=== PATIENT | female | born 1940 | race Caucasian/White ===

== ENCOUNTER 2017-03-12 08:37 | Day surgery (SDC) | payer OTHER ==
[2017-03-12] VITALS (14 sets, daily range): BP systolic 110–174; BP diastolic 54–91; PULSE 65–70; TEMP 36.6–37; O2SAT 95–100; Ht 165.1 cm; Wt 84.5 kg
[~2017-03-12] VITALS: Ht 165.1 cm; Wt 84.5 kg
[~2017-03-12 08:37] MED LIST: ADVIN50050 INH; FLUO20CA35 PO; LEVO88TA3 PO; PRLSR20 PO; SIMV40TA2 PO
--- NOTE | 2017-03-12 08:50 | History and Physical ---
History & Physical Date of Service Mar 12, 2017. History & Physical Reason for visit: Bronchoscopy HPI: Patient is a 76-year-old female presenting to [facility] for bronchoscopic evaluation today. Patient has history of COPD, interstitial lung disease, hypoxia, and solitary pulmonary nodule. The patient recently was noted to have worsening of her breathing by KELSEY Altman. She had a 6 minutes walk test completed in the office which showed desaturation down to 87% after 5 minutes of ambulation. She was placed on 2 liters of oxygen and did improve. CT scan was completed on 02/11/2017 which showed no concerning lung nodules needing follow-up. She was noted to have a background of peripheral, pleural based, interstitial lung disease without evidence of airspace infiltrates. These images were not available for viewing. During her most recent outpatient evaluation, the patient was set up for home oxygen with ambulation and at night. It was recommended that she have bronchoscopic evaluation to evaluate the architecture of her airways and to see if she has any mucus plugging that could be causing her hypoxia. Patient pulmonary function studies completed on 01/25/2017. Her PFTs showed spirometry within normal limits, no significance response to bronchodilator, mildly reduced FRC of 56%. Diffusion was significantly reduced at 33% but corrects based off alveolar volume to 86%. This all suggested interstitial lung disease versus pneumonitis. Allergies: Aleve, aspirin, Bactrim, codeine derivatives, Lopid, Niaspan, sulfa drugs Medications: ProAir HFA 1 2 puffs q.4 hours p.r.n., Synthroid 88 micrograms daily, ipratropium bromide nasal solution, atorvastatin calcium 20 mg daily, buspirone 5 mg b.i.d., Prilosec 20 mg daily, Prozac 20 mg daily, Tylenol Arthritis q.4 hours p.r.n. Past medical history: Asthma, COPD, concussion, dyslipidemia, dyspnea, hypothyroidism, rhinorrhea, seasonal allergies, solid pulmonary nodule Surgical history: Cataract surgery, colonoscopy, heart surgery, hysterectomy, jaw surgery, neck surgery Family history: Cardiac disease, CHF, diabetes, hypercholesterolemia Social history: Social drinker, denies history of drug use, never smoker, Physical exam: General: Patient is awake, alert, cooperative, and in no acute distress. Head: Normocephalic, Atraumatic. ENT: PERRLA, No discharge, EOMI, Sclera normal Neck: Normal ROM. Trachea midline. No stridor Respiratory: No respiratory distress. No accessory muscle use. Cardiovascular: Regular rate and rhythm. Extremities: Mild edema B/L LE. No cyanosis. Normal ROM Neuro: Alert, Oriented x 3. CN II-XII grossly intact. Sensation and motor function grossly intact. Psych: Mood and affect are normal. Assessment and plan: Patient with hypoxia, COPD, and interstitial lung disease with worsening symptoms. Plan for bronchoscopic evaluation today for concerns of mucus plugging, infection, etc. Patient's history and physical exam and exam performed by myself above for plan agreed upon.
--- NOTE | 2017-03-12 09:19 | Procedure Note ---
Pre-Mod Sedation Assessment General Date of Moderate Sedation: Mar 12, 2017. Review Cardiovascular: regular rate, rhythm, no edema, no gallop, no JVD, no murmur Abdomen: normal bowel sounds, non tender, soft, no organomegaly, no pulsatile mass Lungs: chest non-tender, lungs clear, normal breath sounds, no respiratory distress Pre-Sedation Airway Assessment Oral Cavity: WNL Able to Visualize Vocal Cords: Yes Short Thick Neck: Yes Hx of Sleep Apnea: No Smoking Status: Never Smoker Mallampati Classification: Class II ASA Classification: Class II Procedure Planning Contraindications-for Mod Sed: None Yes Notes The planned sedation has been discussed with the patient and consent obtained. I have identified the patient, determined the appropriateness of sedation and have assessed the patient immediately prior to the procedure. All medicine(s) and interventions are by my order.
--- NOTE | 2017-03-12 09:19 | History & Physical Bridge Note ---
H&P Re-Evaluation Bridge Note: I have examined the patient, reviewed the History & Physical and in the interval since the performance of the History & Physical I have noted the following changes of clinical significance: No changes noted
[2017-03-12] MEDS ORDERED: DEXTROSE 5% 1000ML 1,000 ML IV SCH (09:30)
[2017-03-12] MEDS ORDERED: PRED10TA PO (09:34)
[2017-03-12] MEDS ORDERED: NURSING VERBAL MED ORDER ONE (11:00)
--- NOTE | 2017-03-12 11:06 | Discharge Instructions ---
Discharge Instructions Date of Service Mar 12, 2017. Admission Reason for Admission: Sob, Pulmonary Nodule Discharge Discharge Diagnosis / Problem: chronic cough with dyspnea on exertion Discharge Goals Goal(s): Diagnostic testing Activity Recommendations Activity Limitations: resume your previous activity . Instructions / Follow-Up Instructions / Follow-Up Follow-up with provider Venkata Street of the [facility] pulmonary division Current Hospital Diet Patient's current hospital diet: Discharge Diet Recommended Diet: Regular Diet Procedures Procedures Performed: Bronchoscopy, bronchial lavage of the lingula and conscious sedation Pending Studies Studies pending at discharge: no Medical Emergencies . Who to Call and When: Medical Emergencies: If at any time you feel your situation is an emergency, please call 911 immediately. . Non-Emergent Contact Non-Emergency issues call your: Mechanical Meter Tester . . "Provider Documentation" section prepared by Loki Crawford. . VTE Core Measure Inpt VTE Proph given/why not?: Treatment not indicated
--- NOTE | 2017-03-12 11:06 | Procedure Note ---
Procedure Note Date of Service Mar 12, 2017. Procedure Note Procedure: Bronchoscopy, conscious sedation, BAL Consent: Obtained by Dr. Crawford through the patient placed into the chart Pre-procedural diagnosis: Hypoxia, ILD, COPD Post-procedural diagnosis: Hypoxia, ILD, COPD Start time: 10:35 End time: 10:53 Total time: 18 minutes Analgesia: 2% liquid lidocaine: Via nebulizer 4% gel lidocaine: Via right naris 2% liquid lidocaine: Via bronchoscopy Sedation given by Dr. Crawford: Versed IV: 2 mg Fentanyl IV: 50 g Procedure: The [employer] video bronchoscope was used for this procedure and passed down through the right naris Right naris/posterior naris/posterior oropharynx: Anatomically within normal limits Glottis: Anatomically within normal limits Vocal cords: Proper abduction and abduction, anatomically within normal limits Subglottis/trachea/Erin: Some benign appearing calcifications noted on the tracheal rings. EDAC noted approx 70% at main erin. Otherwise anatomically within normal limits Right bronchial tree: Right mainstem bronchus: Anatomically within normal limits Right upper lobe: Anatomically within normal limits Bronchus intermedius: EDAC of approx. 80%. Otherwise anatomically within normal limits Right middle lobe: Anatomically within normal limits Right lower lobe: Anatomically within normal limits Findings: No significant findings noted Left bronchial tree: Left mainstem bronchus: Anatomically within normal limits Left upper lobe: Anatomically within normal limits Lingula: Mild erythema noted. Anatomically within normal limits Left lower lobe: Anatomically within normal limits Findings: No significant findings noted Lower lobes noted to have EDAC approximately 70%. Bronchial alveolar lavage: Lingula EBL: 0 Complications: None Follow-up: With Venkata Street PA-C from the [facility] Performed with Dr. Crawford.
[2017-03-12] MEDS ORDERED: MIDAZOLAM HCL 5 MG/ML 1 ML VIAL IV ONE (11:30)
[2017-03-12] MEDS ORDERED: FENTANYL CITRATE INJ 50 MCG/1 ML 2 ML VIAL IV ONE (11:30)
== END 2017-03-12 13:20 | disposition home or self-care (01) ==
LOC: C.ACU 08:37
PROVIDERS: ATTEND Internal Medicine Critical Care Medicine
DX: J84.9 Interstitial pulmonary disease, unspecified (principal); J44.9 Chronic obstructive pulmonary disease, unspecified; E78.5 Hyperlipidemia, unspecified; E03.9 Hypothyroidism, unspecified; Z79.82 Long term (current) use of aspirin; Z79.899 Other long term (current) drug therapy

== ENCOUNTER 2017-04-01 10:30 | Inpatient (IN) | payer OTHER ==
[2017-03-29 15:39] VITALS: BMI 31.0
[~2017-04-01] VITALS: Ht 162.6 cm; Wt 83.6 kg
[2017-04-01] VITALS (11 sets, daily range): BP systolic 112–134; BP diastolic 67–78; PULSE 72–89; TEMP 36.3–36.9; O2SAT 86–98; Ht 162.6 cm; Wt 83.6 kg
[~2017-04-01 10:30] MED LIST changes: -ADVIN50050 INH; +ATOR-22 PO; +GLC/500 PO; +IBUP-1050 PO; +LACTATED RINGER'S 1000ML 1,000 ML IV SCH; +PRED10TA PO; -SIMV40TA2 PO
[2017-04-01] MEDS ORDERED: OXGN (11:08)
[2017-04-01] MEDS ORDERED: CISATRACURIUM BESYLATE IV SOLN 2 MG/ML 10 ML VIAL ONE ×2 (11:45→14:11)
[2017-04-01] MEDS ORDERED: LIDOCAINE HCL 2% 2 ML VIAL (20MG/ML) ONE ×2 (11:45→14:11)
[2017-04-01] MEDS ORDERED: PROPOFOL IV EMULSION 10 MG/ML 20 ML VIAL IV ONE (11:45)
[2017-04-01] MEDS ORDERED: FENTANYL CITRATE INJ 50 MCG/1 ML 2 ML VIAL ONE ×2 (11:46→13:53)
[2017-04-01] MEDS ORDERED: BUPIVACAINE LIPOSOME 1/3% 266 MG/20 ML VIAL INFIL ONE (12:02)
[2017-04-01] MEDS ORDERED: SODIUM CHLORIDE 0.9% PF 50 ML VIAL ONE (12:02)
[2017-04-01 12:33] LABS: ISTAT ARTERIAL BLOOD GAS HCO3 26 meq/L (19-24); ISTAT ARTERIAL BLOOD GAS PCO2 37 mmHg (35-46); ISTAT ARTERIAL BLOOD GAS PO2 85 mmHg (80-95); ISTAT ARTERIAL BLOOD GAS pH 7.46 (7.35-7.45); ISTAT CARBON DIOXIDE 27 mEq/l (24-31)
[2017-04-01] MEDS ORDERED: ONDANSETRON INJ 2 MG/ML 2 ML VIAL IV PRN ×2 (13:45→14:45)
[2017-04-01] MEDS ORDERED: HYDROCORTISONE SOD SUCCINATE 100 MG/2 ML VIAL ONE (13:51)
[2017-04-01] MEDS ORDERED: ONDANSETRON INJ 2 MG/ML 2 ML VIAL ONE (14:10)
[2017-04-01] MEDS ORDERED: SUCCINYLCHOLINE 100MG/5ML SYR IV ONE (14:11)
--- NOTE | 2017-04-01 14:37 | DIAGNOSTIC IMAGING REPORT ---
CHEST ONE VIEW PORTABLE CLINICAL HISTORY: Lung biopsy. COMPARISON STUDY: Chest CT February 11, 2017. FINDINGS: A right apical chest tube is in place. A trace right apical pneumothorax with superior pleural separation of 4 mm is noted. Diffuse interstitial thickening is noted. This indicates interstitial lung disease. Moderate cardiomegaly is noted. There is no evidence for pulmonary edema. There is minimal right lower lung opacity. Spinal fusion is incidentally noted. IMPRESSION: 1. Trace right apical pneumothorax with right chest tube in place. 2. Minimal right lower lung opacity. 3. Interstitial thickening consistent with interstitial lung disease. Electronically signed by: Lexa Gallardo M.D. 04/01/2017 2:36 PM Dictated Date/Time: 04/01/2017 2:34 PM
[2017-04-01] MEDS ORDERED: ATROPINE SULFATE 0.1 MG/ML 5ML SYR IV PRN (14:45)
[2017-04-01] MEDS ORDERED: FLUMAZENIL 0.1 MG/1 ML 10 ML VIAL IV PRN (14:45)
[2017-04-01] MEDS ORDERED: NALOXONE HCL 0.4 MG/1 ML VIAL/CARP IV PRN (14:45)
[2017-04-01] MEDS ORDERED: PROMETHAZINE HCL INJ 12.5 MG in SODIUM CHLORIDE 0.9% 50ML 50 ML IV PRN (14:45)
[2017-04-01] MEDS ORDERED: LABETALOL HCL IV 5 MG/ML 20ML IV PRN (14:45)
[2017-04-01] MEDS ORDERED: EpHEDrine SULFATE INJ 50 MG/ML AMP IV PRN (14:45)
[2017-04-01] MEDS ORDERED: FENTANYL CITRATE INJ 50 MCG/1 ML 2 ML VIAL IV PRN (14:45)
[2017-04-01] MEDS ORDERED: EpHEDrine SULFATE 50MG/5ML SYR ONE (15:53)
[2017-04-01] MEDS ORDERED: PHENYLEPHRINE 100MCG/ML 5ML SYR ONE (15:53)
--- NOTE | 2017-04-01 16:00 | OPERATIVE REPORT ---
DATE OF OPERATION: 04/01/2017 PREOPERATIVE DIAGNOSIS: Probable pulmonary fibrosis POSTOPERATIVE DIAGNOSIS: Same. PROCEDURES: Right thoracoscopy with wedge resection, right lower lobe and right middle lobe. SURGEON: Dr. Ferguson. APPLICATION DEVELOPMENT DIRECTOR: Ariel Helms (Mr. Helms was present for the entire case and was instrumental holding the camera and first assisting). ANESTHESIA: General anesthesia with endotracheal intubation. INDICATION FOR PROCEDURE AND FINDINGS: Celia Kirby is a 77-year-old female with increasing shortness of breath. She has a relative hypoxia. I was asked to see her by Mr. Venkata Street from a pulmonary standpoint for a biopsy. Her symptoms have worsened in the last few months. On 04/01/2017, the patient underwent an uncomplicated thoracoscopic biopsy: I made one 12 mm port and two 5 mm ports and wedged a portion of her right middle lobe as well as her right lower lobe. I did a lateral and medial aspect of the lower lobe. I sent pieces of each of these for culture. We did an Exparel intrathoracic intercostal block. She tolerated it well. DESCRIPTION OF PROCEDURE: The patient brought to the operating and laid in supine position. General anesthesia induced and endotracheal intubation was performed with a single lumen tube. The patient was then placed in left lateral decubitus position, right chest prepped, draped in usual sterile fashion. The tip of scapula, a 5 mm incision was made with a 5 mm port and carbon dioxide insufflated. The lung was obviously abnormal upon inspection with a 5 mm camera. Another 5 mm port was placed at about the fourth interspace anteriorly and then a 12 mm incision was made inferiorly at about the seventh interspace just lateral to the mediastinum. We were able to see there was obviously an abnormality noted on CT scan, but no grossly to inspect it. The tip of the inferior aspect of the lower lobe was grasped with a forcep and the Endo-CARYN stapler was used to fire across this, approximately 3 times. An Endobag was used to remove this and a portion was cut from this and sent to microbiology for Gram stain, AFB and fungal smears and cultures. I then removed a portion of the lateral right lower lobe in the same fashion and then grasped a portion of the medial lower lobe. We also performed an intrathoracic intercostal nerve block by mixing 266 mg of Exparel with 40 mL of normal saline for a total of 60 mL of solution. We then used this to perform an intrathoracic block under thoracoscopic guidance from the 2nd to 11th rib. This was injected above the rib. We got into no bleeding. A 24-Danish chest tube was then placed in the inferior anterior incision and directed towards the apex and sutured in place with heavy silk suture. A 4-0 Monocryl was then used to close the port sites of the two 5 mm ports. She tolerated it quite well and was extubated in the room with negligible blood loss. I attest to the content of the Intraoperative Record and any orders documented therein. Any exception s are noted below.
[2017-04-01] MEDS ORDERED: GLUCAGON FOR INJ 1 MG VIAL SQ PRN (17:00)
[2017-04-01] MEDS ORDERED: GLUCOSE 10 TABS/TUBE PO PRN (17:00)
[2017-04-01] MEDS ORDERED: SODIUM CHLORIDE 0.9% 1000ML 1,000 ML IV SCH (17:00)
[2017-04-01] MEDS ORDERED: DEXTROSE 50% 50 ML SYR IV PRN (17:00)
[2017-04-01] MEDS ORDERED: GLUCOSE 40% GEL 15 GM TUBE PO PRN (17:00)
[2017-04-01] MEDS: METOCLOPRAMIDE HCL INJ 5 MG/ML 2 ML VIAL IV. SCH (18:17)
[2017-04-01] MEDS: ACETAMINOPHEN IV 1,000 MG in EMPTY BAG 0 ML IV SCH (18:20)
[2017-04-01] MEDS: KETOROLAC TROMETHAMINE 15 MG/ML VIAL IV. SCH (18:20)
[2017-04-01] MEDS ORDERED: NURSING VERBAL MED ORDER ONE (19:30)
[2017-04-01] MEDS: INSULIN ASPART 100 UNITS/ML 3 ML PEN SC SCH ×2 (19:49→21:06)
[2017-04-01] MEDS ORDERED: ATORVASTATIN 20 MG TAB PO SCH (21:00)
[2017-04-01] MEDS: DOCUSATE SODIUM 100 MG CAP PO SCH (21:01)
[2017-04-01] MEDS: CEFAZOLIN IV 2,000 MG in SYRINGE 0 ML IV SCH (21:08)
[2017-04-02 00:35] VITALS: BP 106/66; PULSE 79; TEMP 36.8; O2SAT 96
[2017-04-02] MEDS: KETOROLAC TROMETHAMINE 15 MG/ML VIAL IV. SCH ×2 (01:47→10:20)
[2017-04-02] MEDS: ACETAMINOPHEN IV 1,000 MG in EMPTY BAG 0 ML IV SCH ×2 (01:47→10:21)
[2017-04-02] MEDS: METOCLOPRAMIDE HCL INJ 5 MG/ML 2 ML VIAL IV. SCH ×2 (01:47→08:49)
[2017-04-02 02:35] VITALS: BP 108/67; PULSE 79; TEMP 36.3; O2SAT 93
[2017-04-02 04:35] VITALS: BP 132/66; PULSE 78; TEMP 36.3; O2SAT 94
[2017-04-02] MEDS: CEFAZOLIN IV 2,000 MG in SYRINGE 0 ML IV SCH (05:43)
[2017-04-02] MEDS ORDERED: COUGH DROP (SUGAR FREE) LOZ 24 LOZ/1 BOX ONE (05:52)
[2017-04-02 06:00] LABS: PARTIAL THROMBOPLASTIN RATIO 0.9; PROTHROMBIN TIME (PATIENT) 10.6 SECONDS (9.0-12.0)
[2017-04-02] MEDS ORDERED: NURSING VERBAL MED ORDER ONE (06:00)
[2017-04-02] MEDS ORDERED: LEVOTHYROXINE 88 MCG TAB PO SCH (06:00)
[2017-04-02] MEDS ORDERED: COUGH DROP (SUGAR FREE) LOZ 24 LOZ/1 BOX PO PRN (06:15)
--- NOTE | 2017-04-02 06:30 | Clinical Documentation Query ---
This question should be directed to his [email or web address] interface developer. The purpose for this procedure is to obtain a diagnosis. I am not "managing" anything. Dr Ferguson CLINICAL DOCUMENTATION QUERY 77-y/o female who has undergone VATS with resection of RLL and RML. In your clinical opinion is this patient being managed for: (X ) Chronic respiratory failure in setting of pulmonary fibrosis treated with O2 and Prednisone. ( ) Not Agree ( ) Other explanation of clinical findings (Please Explain) ( ) Unable to determine (Please Define) ( ) Need to Discuss The medical record reflects the following clinical findings, treatment, and risk factors. Clinical Indicators: 86% on RA. On home O2 and prednisone. Treatment: O2, Prednisone, Risk Factors: pulmonary fibrosis, Home O2 and prednisone therapy. Please clarify and document your clinical opinion in the progress notes and discharge summary. Terms such as "probable", "suspected", "likely", "questionable", "possible", or "still to be ruled out" are acceptable. IF IN AGREEMENT, YOU MUST DOCUMENT ABOVE DIAGNOSTIC STATEMENT IN DAILY PROGRESS NOTES AND DISCHARGE SUMMARY. This document is not part of the patient's record. Thank You, Brad Min, RN [phone]
[2017-04-02 06:58] VITALS: O2SAT 90
[2017-04-02 07:07] VITALS: BP 117/69; PULSE 73; TEMP 36.7; O2SAT 94
--- NOTE | 2017-04-02 07:24 | DIAGNOSTIC IMAGING REPORT ---
CHEST ONE VIEW PORTABLE CLINICAL HISTORY: 77 years-old Female presenting with lung biopsy . TECHNIQUE: Portable upright AP view of the chest was obtained. COMPARISON: 04/01/2017. FINDINGS: Large bore right pleural drain terminates at the right apex, unchanged. Atherosclerosis of the aortic arch. Cardiac silhouette mildly prominent secondary to mildly low lung volumes with hypoventilatory changes. Reticular opacities with a basilar predominance, left greater than right, unchanged. Bandlike opacities at the right mid and right base, unchanged. No new focal infiltrate. The previously noted right apical pneumothorax is now trace with a pleural separation of approximately 2 mm. No large effusion. Degenerative changes of the thoracic spine. Partially visualized cervical fusion hardware. Upper abdomen normal. IMPRESSION: 1. Trace persistent right apical pneumothorax. Appropriate positioning of the large bore right pleural drain. 2. No new focal infiltrate. Persistent atelectasis and/or scarring. 3. Mildly low lung volumes with reticular basilar opacities likely fibrotic change. This is better characterized on most recent CT from 02/11/2017. Electronically signed by: Vikram Nielsen M.D. 04/02/2017 7:22 AM Dictated Date/Time: 04/02/2017 7:18 AM
--- NOTE | 2017-04-02 07:51 | Anesthesiology Progress Note ---
Anesthesia Post Op Note Date & Time Apr 02, 2017 at 07:51 Vital Signs Pain Intensity: 0.0 Vital Signs Past 12 Hours Date Time Temp Pulse Resp B/P (MAP) Pulse Ox O2 Delivery O2 Flow Rate FiO2 04/02/17 07:07 36.7 73 17 117/69 (85) 94 Nasal Cannula 2.0 04/02/17 06:58 90 Room Air 04/02/17 04:35 36.3 78 18 132/66 (88) 94 Nasal Cannula 1.0 04/02/17 02:35 36.3 79 18 108/67 (81) 93 Nasal Cannula 1.0 04/02/17 00:35 36.8 79 18 106/66 (79) 96 Nasal Cannula 1.0 04/01/17 23:30 Nasal Cannula 1.0 04/01/17 22:40 36.6 77 18 122/67 (85) 92 Nasal Cannula 1.0 04/01/17 20:39 36.9 83 18 123/70 (87) 86 Room Air 04/01/17 20:28 92 Room Air 04/01/17 19:53 36.3 88 18 134/78 (96) 92 Room Air Notes Mental Status: alert / awake / arousable, participated in evaluation Pt Amnestic to Procedure: Yes Nausea / Vomiting: adequately controlled Pain: adequately controlled Airway Patency, RR, SpO2: stable & adequate BP & HR: stable & adequate Hydration State: stable & adequate Anesthetic Complications: no major complications apparent
[2017-04-02] MEDS ORDERED: CLC100 PO (08:32)
[2017-04-02] MEDS ORDERED: TRAM-10 PO (08:32)
[2017-04-02 08:34] LABS: HEMATOCRIT 33.8 % (37-47); MEAN CELL VOLUME 81.6 fL (80-100); MEAN CORPUSCULAR HEMOGLOBIN 27.1 pg (25-34); MEAN CORPUSCULAR HGB CONC 33.1 g/dl (32-36); MEAN PLATELET VOLUME 9.6 fL (7.4-10.4); PLATELET COUNT 241 K/uL (130-400); RED BLOOD COUNT 4.14 M/uL (4.2-5.4); WHITE BLOOD COUNT 10.94 K/uL (4.8-10.8)
--- NOTE | 2017-04-02 08:35 | Discharge Instructions ---
Discharge Instructions Date of Service Apr 02, 2017. Admission Reason for Admission: Interstitial Lung Disease, Diabetic Discharge Discharge Diagnosis / Problem: Interstitial Lung Disease Discharge Goals Goal(s): Learn about illness Activity Recommendations Activity Limitations: as noted below Lifting Limitations: none 1. Do not drive if taking ultram. 2. Do no drive until cleared to do so by Dr. Ferguson. . Instructions / Follow-Up Instructions / Follow-Up 1. Office appointment with Dr. Ferguson in 1 week. Office will call with date and time of appointment. Go to hospital 1 hour before appointment to have a chest x-ray. 2. You may remove dressing in 3 days and shower thereafter. No tub baths. Current Hospital Diet Patient's current hospital diet: Diabetes Type 2 Diet Discharge Diet Recommended Diet: Diabetes Type 2 Diet Procedures Procedures Performed: Right Video Assisted Thoracoscopy with Lung Biopsy right lower lobe x2, right upper lobe Pending Studies Studies pending at discharge: no Medical Emergencies . Who to Call and When: Medical Emergencies: If at any time you feel your situation is an emergency, please call 911 immediately. . Non-Emergent Contact Non-Emergency issues call your: Surgeon Call Non-Emergent contact if: you have a fever, your pain is not controlled, wound has increased drainage . "Provider Documentation" section prepared by Ariel Helms. . VTE Core Measure Inpt VTE Proph given/why not?: Enoxaparin (Lovenox)SQ
[2017-04-02 08:41] LABS: CREATININE 0.89 mg/dl (0.60-1.20)
--- NOTE | 2017-04-02 08:41 | DISCHARGE SUMMARY ---
DISCHARGE DIAGNOSES: 1. Probable interstitial fibrosis. 2. Hypoxemia. HOSPITAL COURSE: Celia Kirby is a delightful 77-year-old female who has increasing dyspnea and increasing cough and was found to have radiographic and clinical changes suggestive of pulmonary fibrosis. She was worked up by Venkata Street and it was felt that a lung biopsy would be in order to make a diagnosis to optimize her therapy. On 04/01/2017, the patient underwent an uncomplicated right thoracoscopy with biopsy of her right lower lobe x2 in the medial and lateral aspects and the upper lobe. She tolerated it quite well. She had no air leak and really no bleeding. We did an Exparel block and she awakened without pain. She is ambulating in the hallway. She is tolerating a house diet. I removed her chest tube. I thought her x-ray looked quite good. She was discharged home on postoperative day 1. We will see her back in the office next week. Discharge instructions were given.
[2017-04-02] MEDS: INSULIN ASPART 100 UNITS/ML 3 ML PEN SC SCH (08:48)
[2017-04-02] MEDS: DOCUSATE SODIUM 100 MG CAP PO SCH (08:50)
[2017-04-02] MEDS ORDERED: FLUOXETINE HCL 20 MG CAP PO SCH (09:00)
[2017-04-02] MEDS ORDERED: PANTOprazole SOD 40 MG TAB PO SCH (09:00)
--- NOTE | 2017-04-02 09:17 | DIAGNOSTIC IMAGING REPORT ---
CHEST ONE VIEW PORTABLE CLINICAL HISTORY: chest tube removal COMPARISON STUDY: 04/02/2017 FINDINGS: The cardiac and mediastinal contours remain stable. There has been interval removal of the right-sided chest tube. There is a tiny 3 mm right apical pneumothorax. There is bilateral interstitial thickening, similar to the preceding study. There is no lobar consolidation. There are no significant pleural effusions.[ IMPRESSION: 1. Interval removal of the right-sided chest tube. Trace 3 mm right apical pneumothorax 2. Persistent interstitial thickening suggesting underlying interstitial lung disease Electronically signed by: Mann Corrales M.D. 04/02/2017 9:16 AM Dictated Date/Time: 04/02/2017 9:14 AM
[2017-04-02] MEDS ORDERED: ENOXAPARIN 40 MG/0.4 ML SYR SQ SCH (10:00)
[2017-04-02 10:12] VITALS: BP 117/69; PULSE 73; TEMP 36.7; O2SAT 94
== END 2017-04-02 11:10 | disposition home or self-care (01) | DRG 168 ==
LOC: C.ACU 10:30 → C.MSN 12:30 → ENRESERV 15:18
PROVIDERS: ADMIT Surgery; ATTEND Surgery
PROC: 0BBF4ZX Excision of Right Lower Lung Lobe, Percutaneous Endoscopic Approach, Diagnostic (ICD-10-PCS; principal; 2017-04-01 12:30)
PROC: 0B9N30Z Drainage of Right Pleura with Drainage Device, Percutaneous Approach (ICD-10-PCS; principal; 2017-04-01 12:30)
PROC: 0BBD4ZX Excision of Right Middle Lung Lobe, Percutaneous Endoscopic Approach, Diagnostic (ICD-10-PCS; principal; 2017-04-01 12:30)
DX: J84.10 Pulmonary fibrosis, unspecified (principal); R09.02 Hypoxemia; J44.9 Chronic obstructive pulmonary disease, unspecified; J45.909 Unspecified asthma, uncomplicated; E78.5 Hyperlipidemia, unspecified; E03.9 Hypothyroidism, unspecified; Z79.899 Other long term (current) drug therapy; Z79.52 Long term (current) use of systemic steroids; Z82.49 Family history of ischemic heart disease and other diseases of the circulatory system; Z83.3 Family history of diabetes mellitus

== ENCOUNTER → 2017-04-09 | Outpatient (CLI) | payer OTHER ==
[~2017-04-09] MED LIST changes: +CLC100 PO; -LACTATED RINGER'S 1000ML 1,000 ML IV SCH; +OXGN; +TRAM-10 PO
--- NOTE | 2017-04-09 14:04 | DIAGNOSTIC IMAGING REPORT ---
CHEST 2 VIEWS ROUTINE HISTORY: Postop. Pneumothorax. Follow-up. COMPARISON: Chest 04/02/2017. FINDINGS: The right-sided pneumothorax has resolved in the interval. Chronic interstitial thickening persists. Right midlung zone density is slightly improved. This may represent resolving postoperative change. Cervical spinal fusion hardware is again noted. Old compression deformities within the upper thoracic and upper lumbar spine. No pleural effusions. Old sternal fracture. IMPRESSION: Overall, interval improvement in the suspected postoperative changes with resolution of the right pneumothorax. Electronically signed by: Chirag New M.D. 04/09/2017 2:02 PM Dictated Date/Time: 04/09/2017 2:00 PM
== END | disposition home or self-care (01) ==
LOC: C.RAD1850 13:47
PROVIDERS: ATTEND Surgery
DX: J84.9 Interstitial pulmonary disease, unspecified (principal)